=== PATIENT | female | born 1990 | race African-American/Black ===

== ENCOUNTER 2021-10-18 19:48 | Emergency (ER) | payer MEDICAID ==
[~2021-10-18] VITALS: Ht 157.5 cm; Wt 113.4 kg
[2021-10-18 20:29] LABS: CLARITY,URINE SL CLOUDY (CLEAR); COLOR,URINE AMBER (YELLOW); LEUKOCYTE ESTERASE ,URINE NEGATIVE (NEGATIVE); NITRITE,URINE NEGATIVE (NEGATIVE)
[2021-10-18 20:30] LABS: KETONES,URINE >=160 (NEGATIVE); PROTEIN,URINE DIPSTICK 2+ (NEGATIVE); URINE UROBILINOGEN 1 mg/dL (0.2 - 1)
[2021-10-18 20:38] LABS: BACTERIA,URINE MANY /HPF; EPITHELIAL CELLS,URINE MODERATE /LPF; MUCUS,URINE MANY (RARE)
== END 2021-10-18 21:27 | disposition home or self-care (01) ==
LOC: ER 19:55
DX: U07.1 COVID-19 (principal); R05.9 Cough, unspecified; R06.02 Shortness of breath; R30.0 Dysuria; R11.2 Nausea with vomiting, unspecified
CPT/HCPCS: 81001; 81025; 99283; U0002